=== PATIENT | male | born 1980 | race Hispanic/Latino ===

== ENCOUNTER 2016-12-23 13:15 | Emergency (ER) | payer OTHER, SELFPAY ==
[2016-12-23] MEDS ORDERED: Ibuprofen 800 MG TAB ONE (14:10)
[2016-12-23] MEDS ORDERED: HYDROcodone/Acetaminophen 5/325 mg Tablet ONE (14:10)
== END 2016-12-23 14:36 | disposition home or self-care (01) ==
LOC: ERS 13:15
DX: M54.41 Lumbago with sciatica, right side (principal); I10 Essential (primary) hypertension; Z79.899 Other long term (current) drug therapy; X50.0XXA Overexertion from strenuous movement or load, initial encounter; Y99.0 Civilian activity done for income or pay
CPT/HCPCS: 99283

== ENCOUNTER 2019-09-03 09:23 | Emergency (ER) | payer SELFPAY, OTHER ==
--- NOTE | 2019-09-03 09:47 | RAD ---
Exam: Chest one view HISTORY:Lightheadedness. Headache. Comparison: None FINDINGS: Cardiac silhouette: Normal Aorta: Unremarkable Pulmonary vessels: Normal Costophrenic angles: Clear LUNGS: Patchy lung parenchymal opacities in the right lung. Pneumothorax: None Osseous abnormalities: None IMPRESSION: Patchy lung parenchymal opacities in the right lung.
[2019-09-03 10:14] LABS: #Eosinphils 0.1 thou/uL (0.0-0.7); #Lymphocytes 1.2 thou/uL (1.20-3.40); #Monocytes 0.6 thou/uL (0.11-0.59); #Neutrophils 3.7 thou/uL (1.40-6.50); %Basophils 0.5 % (0.0-1.0); %Eosinophils 1.5 % (0.0-10.0); %Lymphocytes 20.6 % (21.0-51.0); %Monocytes 11.3 % (0.0-10.0); %Neutrophils 66.3 % (42.0-75.0); Hemoglobin 14.9 g/dL (14.0-18.0); Mean Corpuscular HGB CONC 33.1 g/dL (32.0-36.0); Mean Corpuscular Hemoglobin 25.9 pg (27.0-31.0); Mean Corpuscular Volume 78.3 fL (78.0-98.0); Mean Platelet Volume 8.4 fL (7.4-10.4); Platelet Count 196 thou/uL (130-400); RBC Distribution Width 15.3 % (11.5-14.5); Red Blood Cell (RBC) Count 5.76 mill/uL (4.70-6.10); White Blood Cell (WBC) Count 5.6 thou/uL (4.8-10.8)
[2019-09-03] MEDS ORDERED: hydrALAZINE 20 MG/ML VIAL ONE (10:14)
[2019-09-03] MEDS ORDERED: Ondansetron PF 4 MG/2 ML Vial ONE ×2 (10:14→10:38)
[2019-09-03 10:30] LABS: ALT (SGPT) 27 U/L (8-55); AST (SGOT) 20 U/L (5-34); Albumin 4.1 g/dL (3.5-5.0); Alkaline Phosphatase 65 U/L (40-110); Anion Gap 15 mmol/L (10-20); BUN (Urea Nitrogen) 12 mg/dL (8.9-20.6); Bilirubin, Total 0.5 mg/dL (0.2-1.2); CK (CPK) 71 U/L (30-200); Calc. Creatinine Clearance 0 mL/min (70-130); Calcium 9.7 mg/dL (7.8-10.44); Carbon Dioxide 26 mmol/L (22-29); Chloride 95 mmol/L (98-107); Estimated GFR-MDRD Greater than 90; Globulin 4.1 g/dL (2.4-3.5); Glucose 173 mg/dL (70-105); Lipase 36 U/L (8-78); Potassium 3.7 mmol/L (3.5-5.1); Protein, Total 8.2 g/dL (6.0-8.3); Sodium 132 mmol/L (136-145)
[2019-09-03] MEDS ORDERED: Azithromycin 500 MG VIAL ONE (11:01)
[2019-09-03] MEDS ORDERED: cefTRIAXone\\ROCEPHIN 2 GM VIAL ONE (11:01)
[2019-09-03] MEDS ORDERED: niCARdipine 20MG In NaCl 20 MG/200 ML BAG ONE ×2 (11:46→14:54)
[2019-09-03] MEDS ORDERED: Acetaminophen 325 MG TAB PO PRN (12:53)
[2019-09-03] MEDS ORDERED: Senokot S 8.6-50 MG TAB PO PRN (12:53)
[2019-09-03] MEDS ORDERED: Ondansetron ODT 4 MG TAB PO PRN (12:53)
[2019-09-03] MEDS ORDERED: Bisacodyl 5 MG TAB PO PRN (12:53)
[2019-09-03] MEDS ORDERED: hydrALAZINE 20 MG/ML VIAL SLOW IVP PRN (12:56)
[2019-09-03] MEDS ORDERED: Azithromycin 500 MG in Sodium Chloride 0.9% 250 ML 250 ML IVPB SCH (13:00)
[2019-09-03] MEDS ORDERED: [UNRECOGNIZED DRUG - OTHER] PO PRN (13:15)
[2019-09-03] MEDS ORDERED: metFORMIN 500 MG TAB PO SCH (17:00)
[2019-09-04] MEDS ORDERED: glipiZIDE 5 MG TAB PO SCH (07:30)
[2019-09-04] MEDS ORDERED: Lisinopril 5 MG TAB PO SCH (09:00)
[2019-09-04] MEDS ORDERED: cefTRIAXone\\ROCEPHIN 1 GM in Sodium Chloride 0.9% 100 ML IVPB SCH (12:00)
[2019-09-05 13:10] LABS: SARS-CoV-2 MS2 Positive; SARS-CoV-2 N Gene Positive; SARS-CoV-2 S Gene Positive; SARS-CoV-2 orf1ab Positive
== END 2019-09-03 16:57 | disposition short-term general hospital (02) ==
LOC: ERS 09:23
DX: U07.1 COVID-19 (principal); J12.89 Other viral pneumonia; I16.1 Hypertensive emergency; E11.9 Type 2 diabetes mellitus without complications; I10 Essential (primary) hypertension; Z79.84 Long term (current) use of oral hypoglycemic drugs; Z79.899 Other long term (current) drug therapy
CPT/HCPCS: 36415; 71045; 80053; 82550; 82728; 83690; 84484; 85025; 85379; 86140; 87040; 87635; 93005; 96365; 96366; 96368; 96375; J0360; J0456; J0696; J2405; U0003

== ENCOUNTER 2020-07-18 11:43 | Emergency (ER) | payer OTHER ==
[2020-07-18] MEDS ORDERED: Boostrix 0.5 ML (Tdap) VIAL ONE (13:04)
[2020-07-18] MEDS ORDERED: Ibuprofen 200 MG TAB ONE (13:29)
[2020-07-18] MEDS ORDERED: Acetaminophen 500 MG TAB ONE (13:29)
== END 2020-07-18 13:05 | disposition home or self-care (01) ==
LOC: ERS 11:43
DX: S20.222A Contusion of left back wall of thorax, initial encounter (principal); M25.512 Pain in left shoulder; V43.53XA Car driver injured in collision with pick-up truck in traffic accident, initial encounter; Z79.899 Other long term (current) drug therapy; Z79.84 Long term (current) use of oral hypoglycemic drugs; I10 Essential (primary) hypertension; E11.9 Type 2 diabetes mellitus without complications
CPT/HCPCS: 70450; 71045; 72125; 72170; 90471; 90715

== ENCOUNTER 2025-01-08 19:30 | Emergency (ER) | payer SELFPAY ==
[2025-01-08 20:42] LABS: #Basophils 0.06 10x3/uL (0.0-0.2); #Eosinophils 0.33 10x3/uL (0.0-0.7); #Monocytes 0.91 10x3/uL (0.11-0.59); #Neutrophils 5.76 10x3/uL (1.40-6.50); %Basophils 0.6 % (0.0-1.0); %Eosinophils 3.4 % (0.0-10.0); %Lymphocytes 26.6 % (21.0-51.0); %Monocytes 9.4 % (0.0-10.0); %Neutrophils 59.6 % (42.0-75.0); Hematocrit 41.5 % (42.0-52.0); Hemoglobin 14.1 g/dL (14.0-18.0); Mean Corpuscular Hemoglobin 27.3 pg (27.0-31.0); Mean Corpuscular Volume 80.4 fL (78.0-98.0); Platelet Count 216 10x3/uL (130-400); Red Blood Cell (RBC) Count 5.16 mill/uL (4.70-6.10); White Blood Cell (WBC) Count 9.67 10x3/uL (4.8-10.8)
[2025-01-08 20:59] LABS: ALT (SGPT) 23 U/L (Less than 45); AST (SGOT) 25 U/L (11-34); Albumin 3.7 g/dL (3.1-4.5); Alkaline Phosphatase 158 U/L (40-110); Anion Gap 19 mmol/L (10-20); BUN (Urea Nitrogen) 18 mg/dL (8.9-20.6); Bilirubin, Total 0.3 mg/dL (0.3-1.2); Calc. Creatinine Clearance 0 mL/min (70-130); Calcium 9.5 mg/dL (7.8-10.44); Carbon Dioxide 23 mmol/L (22-29); Chloride 95 mmol/L (98-107); Globulin 3.8 g/dL (2.4-3.5); Glucose 611 mg/dL (70-105); Potassium 3.7 mmol/L (3.5-5.1); Sodium 133 mmol/L (136-145)
[2025-01-08] MEDS ORDERED: Lidocaine 1% w/Epinephrine 1:100K 20 ML VIAL ONE (22:38)
[2025-01-08] MEDS ORDERED: Sulfameth/Trimethoprim DS 800-160mg TAB ONE (22:52)
== END 2025-01-08 23:16 | disposition home or self-care (01) ==
LOC: ERS 19:30
DX: L02.416 Cutaneous abscess of left lower limb (principal); I10 Essential (primary) hypertension; E11.65 Type 2 diabetes mellitus with hyperglycemia; Z55.6 Problems related to health literacy
CPT/HCPCS: 10060; 80053; 82010; 83605; 85025; 93005